=== PATIENT | female | born 1945 | race Two or more races ===

== ENCOUNTER → 2017-10-24 | Outpatient (CLI) | payer MEDICARE ==
--- NOTE | 2017-10-24 17:34 | CONS ---
CONSULTATION REASON FOR CONSULTATION: This is a consultation note for narcolepsy. This is a 72-year-old female patient, who is trying to establish herself here in the sleep clinic to be taken care of her narcolepsy. The patient was diagnosed having narcolepsy many years back. Since diagnosis was given to her at a young age and this is approximately 50 years ago. Back then the patient used to see Dr. Adarsh Adrian in [place], [place]. Note that she seems to have respiratory tract infection. Following that, she was told that she is not the same in terms of her sleep quality. She starts getting excessively somnolent and sleepy and she is not sure whether this sleep study was conducted however she has been told by her physician, Dr. Adarsh Adrian that she has narcolepsy and initially she was given a stimulant called Desoxyn which subsequently got discontinued in the market and the patient was switched to Dexedrine 50 mg once a day (dextroamphetamine). The patient ultimately left Dr. Adarsh Adrian and she was seeing Dr. Cabral as a primary care physician and he was able to renew this patient's with Dexedrine prescription. More recently, the patient established herself with Dr. Hosea Dorsey in [facility] and she was informed that she was to see a sleep specialist regarding her narcolepsy and her primary care physician was unable to renew her dextroamphetamine. For that reason, the patient came to me for further advice. On today's evaluation, I have no objective data to suggest that the patient has narcolepsy. On clinical grounds, the patient seems to be well treated with Dexedrine 50 mg p.o. daily. She is awake and alert during the day and she does not have any sleep attacks. No sleep paralysis or hypnogogical or hyponopromptic hallucinations. She has no cataplexy. She has been on the same medication for 25-30 years at least and she reports she is unable to function without the use of Dexedrine. No snoring. No witnessed apneas. No waking up in the middle of night, choking or gasping for air. No restlessness in lower extremities. No side effects related to Dexedrine intake. No anxiety. No depression. No other psychiatric history. The patient's current Benton score is 10. She denies having any nocturia. No grinding of the teeth. No sleepwalking. No anxiety or panic attack. No palpitation. No nocturnal heartburn. No restlessness in lower extremities. No falling asleep during day-to-day activity or driving. She has never been involved in a motor vehicle accidents because of feeling sleepy. She drinks around 2-3 cups of coffee on a daily basis. No substance abuse. No alcoholism. PAST MEDICAL HISTORY: 1. Questionable narcolepsy details discussed above. 2. Hypertension. 3. Hyperlipidemia. 4. Basal cell carcinoma of the skin. 5. Osteopenia. 6. Glaucoma. PAST SURGICAL HISTORY: Includes tonsillectomy and bilateral cataract surgery. Appendectomy and tubal ligation surgery. ALLERGIES: TYLENOL. OUTPATIENT MEDICATION LIST: Includes Dexedrine 15 mg p.o. ER 1 tablet a day. Chlorothiazide 250 mg p.o. daily, Norvasc 10 mg p.o. daily. Ramipril 10 mg p.o. daily. Zocor 20 mg p.o. daily. Cosopt eye drops. Xalatan eye drops. Multivitamin 1 tablet a day. Aspirin 81 mg p.o. daily, vitamin D 2500 units daily, potassium chloride ER 8 mEq p.o. daily, calcium 5 mg p.o. daily. SOCIAL HISTORY: Patient is a nonsmoker. No history of alcohol. No history of IV drugs. FAMILY HISTORY: Family history negative for narcolepsy. No family history of sleep apnea or any other form of sleep disorder. REVIEW OF SYSTEMS: 12-point review of system was done. Positive findings are mentioned above in the history of present illness. Of significance is the absence of any meningitis. No head trauma. No substance abuse. No dyspnea. No chest pain. No nausea, no vomiting. No restlessness in lower extremities. No neuropathy. No altered mentation. PHYSICAL EXAMINATION: BP is 156/82, pulse 96, respirations 16, temperature 97.8 saturation 97% on room air. Weight is 166, height 5 feet 0 inch. BMI 32.4. Neck size is 14.5 inches. GENERAL APPEARANCE: Calm comfortable. No acute distress. Head is atraumatic, normocephalic. NECK: Supple. There is no JVD. No goiter or neck masses. LUNGS: Clear to auscultation. HEART: Sounds are regular rate and rhythm. Normal S1, S2. No S3. No murmurs. ABDOMEN: Soft, nontender. No organomegaly. EXTREMITIES: No edema. No cyanosis or clubbing. NEUROLOGIC: A and O x3. No focal neurological deficits. PSYCHIATRIC: No anxiety. No depression. SKIN: No ulcerations, cellulitis or wounds. IMPRESSION: Questionable narcolepsy. The patient was given diagnosis of narcolepsy and the exact basis for this diagnosis is not clear. He was diagnosed having the disease more than 50 years ago. I am not sure if she was diagnosed correctly. In fact she recalls that her symptoms of hypersomnia started after a respiratory tract infection which could have been a bacterial or viral infection and following that she became quite hypersomnolent and sleepy and she was started on a stimulants and she has been on Dexedrine for the past 25-30 years at least. In fact, a diagnosis of narcolepsy is doubtful especially with the absence of any sleep paralysis, hallucinations or cataplexy. The patient seems to be well treated with Dexedrine without any major hypersomnia and sleepiness and she seems to be quite alert while on the treatment. PLAN: I had a lengthy discussion with the patient. Explained to her the clinical features of narcolepsy and the patient seemed to be very well educated about the narcolepsy and especially since she has joined the [employer], and she has been getting newsletters on a regular basis and she has been very involved. Never the less, I do not think we have the objective evidence and PSG and MSLT data to support the diagnosis of narcolepsy. I think we need to perform a PSG and 2nd day MSLT to further characterize her sleep abnormality and if narcolepsy is present and studies support the findings, we should be able to continue the treatment. I renewed this patient's Dexedrine 15 mg ER for another 3 months. Meanwhile the patient will undergo a PSG and MSLT and I will review the findings and make further recommendations. I asked the patient to stop the Dexedrine around a week prior to her sleep study. We discussed issues related to sleep hygiene. We are going to implement good sleep hygiene measures. Encourage weight loss. We will follow recommendations based on her progress. Please send a copy to Dr. Hosea Dorsey [id number] [place] [address]. MMODL / IJN: [id number] /
== END | disposition home or self-care (01) ==
LOC: SLEEP 13:30
PROVIDERS: ATTEND Internal Medicine Critical Care Medicine
DX: G47.419 Narcolepsy without cataplexy (principal); I10 Essential (primary) hypertension; E78.5 Hyperlipidemia, unspecified; M85.80 Other specified disorders of bone density and structure, unspecified site; H40.9 Unspecified glaucoma; Z85.828 Personal history of other malignant neoplasm of skin; Z88.6 Allergy status to analgesic agent; Z79.899 Other long term (current) drug therapy; Z79.82 Long term (current) use of aspirin
CPT/HCPCS: 99211

== ENCOUNTER → 2018-02-28 | Outpatient (CLI) | payer MEDICARE ==
--- NOTE | 2018-02-28 16:12 | PN ---
PROGRESS NOTE This patient was seen in the office on initial consultation on 01/02/2018. The patient came to establish herself at our sleep clinic. The patient claimed that she had a diagnosis of narcolepsy that was established more than 40 years ago. Apparently she was diagnosed with narcolepsy at a very young age, and she was having chronic hypersomnia and sleepiness; for that reason, she was started on stimulant therapy and she took Dexedrine for a total of 25 to 30 years. The patient was taking it without any major problems. She has no sleep paralysis, no hallucinations, no cataplexy. She states that she is unable to function during the day without the treatment, and she needs it to help her with her chronic tiredness and sleepiness that she has been experiencing for years. Based on all this, I decided to repeat this patient's sleep study to re-evaluate the findings. The sleep study was completed on 01/02/2018. In summary, the patient had no evidence of any sleep breathing disorder. The sleep architecture showed 16% stage I, 47.1% stage II, 1% stage III and 12% REM sleep. No early REM onset. She hit the first REM at 97 minutes. Sleep efficiency was around 70%. Her AHI was 4.9. She had a second-day MSLT, during which she was given a total of 5 naps. She napped in all of these trials and her mean sleep latency for 5 naps was 13.1. She only had one REM-onset sleep. Based on all this, the patient does not have any solid or objective finding of narcolepsy. As mentioned, she does not have any sleep paralysis, hallucinations or cataplexy. She probably has a component of chronic hypersomnia, probably primary hypersomnia, for which she was given stimulants, and she is at the point where she cannot function and she becomes quite somnolent and sleepy while on treatment. She does not seem to have any addiction for the behavior. She has been taking the medication regularly for all these years without any potential side effects or any reported overdose or abuse. Her urine drug screen was also negative for any opiate, methadone or any other street drugs. She also was negative for alcohol. REVIEW OF SYSTEMS: CONSTITUTIONAL: Chronic fatigue and tiredness. No recent weight gain or weight loss. She has snoring without evidence of any obstructive sleep apnea, based on the sleep study. She has no sleep paralysis, no hallucinations, no cataplexy, no anxiety, no substance abuse, no heartburn, no chest pain, no palpitations, no falls, no altered mentation. PHYSICAL EXAMINATION: BP is 164/84, pulse 82, respirations 16, temperature 98.1, saturation 98% on room air. Tracy score is 14. GENERAL APPEARANCE: Calm, comfortable. Head is atraumatic, normocephalic. Neck is supple. There is no JVD. No goiter or neck mass. LUNGS: Clear to auscultation. Heart sounds are regular rate and rhythm. Normal S1, S2. No S3, S4. No murmurs. ABDOMEN: No organomegaly. There is no edema. No cyanosis or clubbing. NEUROLOGIC: The patient is alert and oriented x3. There is no focal neurological deficit. Psychiatrically no anxiety or depression. IMPRESSION: 1. 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 Mean sleep latency is at 13.1, and there was only one REM-onset sleep; not enough to diagnose narcolepsy at this stage. No evidence of any sleep breathing disorder/obstructive sleep apnea. No objective evidence of narcolepsy. 2. Hypertension. 3. Hyperlipidemia. 4. Osteopenia. 5. Glaucoma. PLAN: Renew Dexedrine, which is a dextroamphetamine, 15 mg ER one tablet a day to be taken in the morning. Will give her a 90-day supply. We will continue monitoring this patient on a regular basis. No adverse reaction from the treatment. No reported psychosis or any aggressive behavior. No potential side effects on her blood pressure. The patient does not have any history of coronary artery disease. No dependency or abuse potential, and the patient has been taking treatment without any complications. To renew the medication, she will see me back in 6 months to a year for followup. MMODL / IJN: [id number] /
== END | disposition home or self-care (01) ==
LOC: SLEEP 12:54
PROVIDERS: ATTEND Internal Medicine Critical Care Medicine
DX: G47.10 Hypersomnia, unspecified (principal); I10 Essential (primary) hypertension; E78.5 Hyperlipidemia, unspecified; M85.80 Other specified disorders of bone density and structure, unspecified site; H40.9 Unspecified glaucoma

== ENCOUNTER → 2019-04-09 | Outpatient (CLI) | payer MEDICARE ==
--- NOTE | 2019-04-09 16:04 | PN ---
PROGRESS NOTE This patient is a 73-year-old female coming in for annual check regarding chronic hypersomnia. The patient has primary hypersomnia, treated with Dexedrine 15 mg for more than 20 years, and today she is coming in for followup. Note that I did a complete evaluation of this patient, including a PSG and second-day MSLT. She did not fit the criteria for narcolepsy, despite what she was told in the past. Note that she does not have any sleep paralysis, hallucinations or cataplexy. She had a mean sleep latency of 13.1 minutes for a total of 5 naps. No REM-onset sleep. She is feeling much better with the use of Dexedrine that she has used for more than 20 years. She is going to bed around 10:30 p.m., wakes up at 8 a.m. in the morning. She takes her Dexedrine tablet in the morning. No side effects. No tachycardia. No issues with dependence or drug overdose. No hallucinations. No anxiety. No depression. No tachycardia. No palpitations. The rest of her medical problems and comorbidities are all essentially stable for the time being. She does not fall asleep during day-to-day activities and she feels quite alert and refreshed and she is very content with the treatment. REVIEW OF SYSTEMS: Fourteen-point review of systems was done. Positive findings are all mentioned above in the history of present illness. No chest pain. No heartburn. No palpitation. No substance abuse. No drug overdose. No anxiety. No depression. No history of any psychiatric disorder or mental health issues. PHYSICAL EXAMINATION: BP is 150/92, pulse 81, respirations 16, temperature 97.5, saturation 99% on room air. Weight is 172, height 5 feet 0 inches. Norwalk score is 13. BMI is 33.5. GENERAL APPEARANCE: Calm, comfortable. No acute distress. Head is atraumatic, normocephalic. NECK: Supple. No JVD. No goiter or neck mass. LUNGS: Diminished; otherwise clear. HEART: Heart sounds are regular rate and rhythm. Normal S1, S2. No S3, S4. No murmurs. ABDOMEN: Soft, nontender. No organomegaly. EXTREMITIES: No edema. No cyanosis or clubbing. NEUROLOGIC: The patient is alert and oriented x3. No focal neurological deficits. PSYCHIATRIC: Negative for anxiety or depression. Skin is negative for any wounds or ulceration. IMPRESSION: 1. Chronic hypersomnia, on Dexedrine, with excellent clinical response and compliance. No side effects to the treatment. The patient has been on Dexedrine 15 mg for more than 20 years. The medication will be renewed. Overall there is no indication for narcolepsy in this patient based on my previous workup. 2. Hypertension. 3. Hyperlipidemia. 4. Osteopenia. 5. Glaucoma. PLAN: 1. Renewed Dexedrine for another year. 2. No adverse effects from the treatment. 3. No cardiovascular side effects. 4. No psychiatric side effects. 5. No issues with dependency. 6. Will continue to follow. See me back in a year's time, earlier if needed. MMODL / IJN: [id number] /
== END | disposition home or self-care (01) ==
LOC: SLEEP 13:38
PROVIDERS: ATTEND Internal Medicine Critical Care Medicine
DX: G47.10 Hypersomnia, unspecified (principal); I10 Essential (primary) hypertension; E78.5 Hyperlipidemia, unspecified; M85.80 Other specified disorders of bone density and structure, unspecified site; H40.9 Unspecified glaucoma; Z79.899 Other long term (current) drug therapy

== ENCOUNTER → 2020-06-02 | Outpatient (CLI) | payer MEDICARE ==
--- NOTE | 2020-06-02 16:54 | PN ---
PROGRESS NOTE This is another annual visit for this patient who is currently 74, who has been on Dexedrine for more than 30 years for chronic primary hypersomnia. The patient continues to take medication at a dose of 50 mg p.o. daily to get adequate clinical response and arousal and alertness during the day. No reported side effects. As mentioned earlier, I do not see any autonomic side effects on his medications such as tachycardia or hypertension, irritability or altered mentation. No signs of any potential abuse for this patient. She is going to bed around 11 p.m., and she wakes up at 7 o'clock in the morning. She feels refreshed as the patient takes the medication 7 a.m. and gives her enough stimulation for the rest of the day. No recent weight gain or weight loss. Custer score without medications quite high at 20. Her current body weight is 164. No alcoholism. No substance abuse. She drinks wine occasionally and she smokes around 10-15 cigarettes on a daily basis. The rest of the medications have been essentially unchanged for now. REVIEW OF SYSTEMS: A 14-point review of system was done and positive findings are mentioned in history of present illness. No altered mentation. No TIAs. No focal neurological deficits. No change in her speech. No anxiety. No depression. No irritability. No confusion. No delirium. No psychosis. No tachycardia, palpitation or hypertensive reactions. PHYSICAL EXAMINATION: BP is 137/75, pulse 98, respirations 16, temperature is 98.2, saturation 97% on room air. Height is 4, 11, weight is 164. Neck size 14.5 inches, BMI 32.9. GENERAL APPEARANCE: Calm, comfortable. HEAD: Atraumatic, normocephalic. NECK: Supple. No JVD. No goiter or neck masses. LUNGS: Clear to auscultation. HEART: Heart sounds are regular rate and rhythm, normal S1, S2. No murmurs. ABDOMEN: Soft, nontender, no organomegaly. EXTREMITIES: No edema, no cyanosis or clubbing. NEUROLOGICALLY: She is awake and alert and there are no focal neurological deficits. MEDICATION LIST: Includes Dexedrine 50 mg p.o. daily, hydrochlorothiazide 25 mg p.o. daily, Norvasc 10 mg p.o. daily, ramipril 10 mg p.o. daily, Zocor 20 mg p.o. daily, low-dose aspirin 81 mg p.o. daily, vitamin B, vitamin D, fish oil, calcium, lutein, Xalatan eyedrops, Cosopt eye drops, magnesium supplements, multivitamin. IMPRESSION: 1. Chronic primary hypersomnia, maintained on Dexedrine for more than 30 years. No reported side effects. The patient is getting adequate clinical response and alertness during the day while on this medication without any potential side effect or abuse. Will continue same treatment for now. 2. Hypertension. 3. Hyperlipidemia. 4. Glaucoma. 5. Osteopenia. PLAN: 1. Continue Dexedrine 50 mg p.o. daily. 2. Monitor for any potential side effect or abuse. 3. The patient is following good sleep hygiene. 4. Rest of the comorbidities are all inactive and stable and will need a medication and she will see me back in a year's time in followup. MMNANCYL / ANAN: [id number] /
== END | disposition home or self-care (01) ==
LOC: SLEEP 16:01
PROVIDERS: ATTEND Internal Medicine Critical Care Medicine
DX: F51.11 Primary hypersomnia (principal); I10 Essential (primary) hypertension; E78.5 Hyperlipidemia, unspecified; H40.9 Unspecified glaucoma; M85.80 Other specified disorders of bone density and structure, unspecified site; Z79.82 Long term (current) use of aspirin; Z79.899 Other long term (current) drug therapy

== ENCOUNTER → 2021-06-28 | Outpatient (CLI) | payer MEDICARE | END | disposition home or self-care (01) | LOC: LABPAT 12:29 | PROVIDERS: ATTEND Orthopaedic Surgery | DX: Z01.812 Encounter for preprocedural laboratory examination (principal); Z22.322 Carrier or suspected carrier of Methicillin resistant Staphylococcus aureus; M16.11 Unilateral primary osteoarthritis, right hip | CPT/HCPCS: 87070 ==

== ENCOUNTER 2021-07-06 09:15 | Observation (INO) | payer MEDICARE ==
--- NOTE | 2021-06-26 12:03 | HP ---
HISTORY AND PHYSICAL CHIEF COMPLAINT: Right hip pain. HISTORY OF PRESENT ILLNESS: The patient is a 75-year-old female who presents with progressive right hip pain for the past several years, worsening recently. She notes diffuse hip pain with any weightbearing activities. She has been limping. She is using a cane. She has tried anti-inflammatories without much relief. She notes she is severely limited because of pain. PAST MEDICAL HISTORY: Significant for eye disease, hypertension, hypercholesteremia, and arthritis. PAST SURGICAL HISTORY: Significant for appendectomy, tubal ligation, cataract removal, and tonsillectomy. CURRENT MEDICATIONS: Amlodipine, aspirin, hydrochlorothiazide, simvastatin, ramipril, Xalatan. ALLERGIES: SENSITIVITY TO TYLENOL. FAMILY HISTORY: Is unknown. SOCIAL HISTORY: Significant for current tobacco use. REVIEW OF SYSTEMS: Sixteen-point review of systems otherwise reviewed and is noncontributory. PHYSICAL EXAMINATION: On examination, the patient is approximately 5 feet 1, 150 pounds of mesomorphic habitus. HEENT exam is nonfocal. NECK was supple. Passive motion right hip, flexion 75 degrees, external rotation hip flexed 50 degrees, internal rotation is 10 degrees with pain. She has shortening of the right lower extremity compared to the left. Her distal neurovascular exam appears intact in the right lower extremity. X-rays of the right hip obtained in the office show severe degenerative joint disease with [id number] changes and subchondral sclerosis. IMPRESSION: Right hip severe osteoarthrosis-symptomatic. RECOMMENDATIONS: I talked to the patient at length regarding her condition and treatment options. At this point, she is quite limited because of pain despite attempted conservative measures. After thorough discussion, she opts to proceed with surgery. We will plan to proceed with right total hip arthroplasty utilizing a lateral approach. We will institute DVT prophylaxis postoperatively. Risks and benefits were discussed at length in layman's terms. MMODL / IJN: [id number] /
[2021-07-01 13:08] VITALS: BMI 27.8
[~2021-07-06 09:15] MED LIST: ACETAMINOPHEN TAB 500 MG TAB PO PRN; DEXAMETHASONE SOD PHOSPHATE 4 MG/ML 1 ML VIAL IV ONE; HYDROmorphone 0.5 MG/0.5 ML SYRINGE IVP PRN; LIDOCAINE 1% (10MG/ML) FOR IV START INTRADERMA PRN; MELOXICAM 7.5 MG TAB PO PRN; MIDAZOLAM 2 MG/2 ML VIAL IV PRN; ONDANSETRON 4 MG/2 ML VIAL IVP PRN; TRANEXAMIC ACID 1,000 MG in SODIUM CHLORIDE 0.9% 100 ML IVPB PRN
[2021-07-06] MEDS: LACTATED RINGERS 1,000 ML IV SCH ×2 (09:33→09:50)
[2021-07-06] MEDS ORDERED: MIDAZOLAM 2 MG/2 ML VIAL ONE (10:30)
[2021-07-06] MEDS ORDERED: PROPOFOL 10 MG/ML 20 ML VIAL IV ONE (10:30)
[2021-07-06] MEDS ORDERED: fentaNYL (PF) 50 MCG/ML 2 ML AMP ONE (10:30)
[2021-07-06] MEDS ORDERED: TRANEXAMIC ACID 1,000 MG/10 ML VIAL ONE (10:30)
[2021-07-06] MEDS ORDERED: PHENYLEPHRINE-0.9% NACL SYG 1,000 MCG/10 ML SYRINGE ONE (10:30)
[2021-07-06] MEDS ORDERED: SODIUM CHLORIDE 0.9% 100 ML BAG ONE (10:30)
[2021-07-06] MEDS ORDERED: HYDROmorphone (PF) 1 MG/ML ONE (10:30)
[2021-07-06] MEDS ORDERED: ceFAZolin 1,000 MG in SODIUM CHLORIDE 0.9% 1,000 ML IRRIGATION ONE (11:02)
[2021-07-06] MEDS ORDERED: LACTATED RINGERS 1,000 ML IV ONE ×2 (11:32→14:00)
[2021-07-06] MEDS ORDERED: NALOXONE 0.4 MG/ML 1 ML VIAL IV PRN (12:31)
[2021-07-06] MEDS ORDERED: HYDROcodone/APAP 5-325MG 1 EACH TAB PO PRN (12:31)
--- NOTE | 2021-07-06 12:51 | P.OP ---
Date of Procedure: 07/06/21 Preoperative Diagnosis: Right hip severe osteoarthrosis Postoperative Diagnosis: Same Procedure(s) Performed: Right total hip arthroplastypress-fitlateral approach Implants: Depuy Corail size 11 high offset collared femoral stem, 36+8.5 cobalt chrome femoral head, 36 mm [place] acetabular shell with +4 neutral liner. Anesthesia: GETA, spinal Surgeon: Abdias Parker Senior Telecommunications Engineer #1: Tenzin Castañeda Estimated Blood Loss (ml): 100 Pathology: other (Femoral head) Condition: stable Disposition: PACU Indications for Procedure: The patient's a 75-year-old female who presents with progressive pain secondary osteoarthrosis despite conservative measures. A discussion of the risks and benefits of operative intervention versus continued conservative measures. Patient To proceed with surgery. Operative risks to include fracture, inf ection, neurovascular injury, development of blood clots, possible leg length discrepancy, possible component loosening/failure need for subsequent procedures was discussed. Informed consent was obtained. Operative Findings: As below Description of Procedure: The patient was brought to the operating room, and after induction of spinal anesthesia was placed in a lateral decubitus position. The bony prominences were appropriately padded. The pelvis was stable perpendicular to the floor with a pegboard. The right lower extremity was prepped and draped in normal fashion. A 12 cm incision was then made centered over the greater trochanter extending superiorly to level the ASIS and distally in line with the femoral shaft. The skin and subcutaneous tissues were divided sharply. Electrocautery was used for hemostasis. The fascia paris and gluteus lakhwinder fascia was split in line with the skin incision. The muscle fibers were bluntly dissected proximally. A self-retaining retractor was placed. The anterior and posterior margins of the gluteus medius muscles identified and the anterior two thirds was detached from the greater trochanter with electrocautery. The gluteus minimus tendon was identified and detached in a similar fashion. A wide capsulotomy was performed. The femoral neck fracture was identified in the lower neck cut was made approximately 1 1/2 cm above the level of the lesser trochanter with a sagittal saw at a 45 the shaft. The head was then extracted with a corkscrew. Attention was then paid towards preparing the acetabular. Anterior and posterior retractors were placed. The remaining capsular labral tissues debrided sharply clearly defining the acetabular margins. Began reaming with a 45 mm reamer taking care to initially medialize, then reaming at 45 of abduction and 20 of anteversion. Sequential reaming is performed up to 55 mm. This was down to bleeding bony surface. A trial 56 mm acetabular shell was inserted at 45 of abduction and 20 of anteversion. This was fully seated. There was good rim fit and stability. A +4 neutral polyethylene liner was then impacted. Care taken to avoid any soft tissue interposition. Attention was then paid towards preparing the proximal femur. A box chisel was used to open the metaphyseal region. A canal finder was used to find the femoral canal. Sequential broaching was performed up to a size 11. This is placed in 15 of anteversion with the leg perpendicular floor judging off the trans-epicondylar axis. There is good rotational stability. A calcar mill was used to fashion the medial calcar. A trial high offset neck along with a 36 mm + 8.5 trial head was placed. The hip was gently reduced. It was taken through range of motion. I felt to be stable in flexion and extension with internal and external rotation. I felt there was adequate [place] of soft tissue tension. The hip was gently dislocated. The trial components removed. Pulsatile lavage was utilized. The final size 11 high offset collared femoral stem was inserted again with the leg perpendicular to the floor in 15 of anteversion. Again the re was good rotational stability. A 36 mm + 1.5 cobalt chrome femoral head was gently impacted. The hip was gently reduced. Again it was taken through motion and felt to be stable in flexion and extension with internal and external rotation. Pulsatile lavage was again utilized. With the leg in abduction the gluteus minimus and medius tendons reattached to the greater trochanter with #2 Ethibond suture. There was minimal drainage therefore a deep drain was not placed. The fascia paris and gluteus lakhwinder fascia was closed with #2 Ethibond suture. The subcutaneous tissues were reapproximated interrupted 2-0 Vicryl sutures. The skin was reapproximated with 3-0 subcuticular strata fix suture. Skin tape and adhesive was applied. A sterile dressing was applied. The patient was awoken from sedation and transferred to recovery room in good condition. Blood loss was estimated 100 mL. No complications were incurred. Sponge and needle counts were correct in the case. Tenzin TATE assisted during the major composes case to include exposure, implantation, and closure.
--- NOTE | 2021-07-06 14:07 | XR ---
EXAMINATION TYPE: XR Hip Limited RT DATE OF EXAM: 07/06/2021 COMPARISON: NONE HISTORY: Postop TECHNIQUE: One view submitted. FINDINGS: There is postsurgical change in near anatomic alignment. There is soft tissue edema and emphysema. IMPRESSION: 1. Postoperative change. Appears in near-anatomic alignment.
[2021-07-06] MEDS: HYDROcodone/APAP 7.5-325MG 1 EACH TAB PO PRN (15:21)
--- NOTE | 2021-07-06 16:50 | P.CONS ---
History of Present Illness - Reason for Consult Consult date: 07/06/21 - Chief Complaint Medical management - History of Present Illness 75 year old woman with history of Glaucoma, narcolepsy, HTN, HLD who presented for elective right hip total arthroplasty. Medicine consulted for medical management. Pt did well post operatively with no complaints outside of some right hip pain. She has an oxygen requirement, but no dyspnea. Denies cp, palps, fevers, chills, nausea, vomiting, syncope, abd pain, diarrhea, constipation, dysuria, numbness/weakness of extremities. She is afebrile, HDS. On 2L NC for 100% saturation. Review of Systems All Systems reviewed and pertinent positives and negatives noted in HPI, all other symptoms are negative Past Medical History Past Medical History: Eye Disorder, Hyperlipidemia, Hypertension, Osteoarthritis (OA) Additional Past Medical History / Comment(s): BILAT GLAUCOMA. NARCOLEPSY History of Any Multi-Drug Resistant Organisms: None Reported Past Surgical History: Appendectomy, Tonsillectomy, Tubal Ligation Additional Past Surgical History / Comment(s): BILAT CATARACTS REMOVED WITH LENS IMPLANTS Past Anesthesia/Blood Transfusion Reactions: No Reported Reaction Past Psychological History: No Psychological Hx Reported Smoking Status: Current every day smoker Past Alcohol Use History: Occasional Additional Past Alcohol Use History / Comment(s): SMOKES ABOUT 1/2 PPD SINCE AGE 17 Past Drug Use History: None Reported - Past Family History Mother Family Medical History: No Reported History Medications and Allergies Home Medications Medication Instructions Recorded Confirmed Type Aspirin [Adult Low Dose Aspirin EC] 81 mg PO DAILY 07/01/21 07/06/21 History Calcium Carbonate/Vitamin D3 1 each PO DAILY 07/01/21 07/06/21 History [Calcium 500 mg-Vit D3 5 mcg (200 Unit)] Dextroamphetamine Sulfate 15 mg PO QAM 07/01/21 07/06/21 History [Dexedrine] Dorzolamide/Timolol/Pf [Cosopt Pf 1 applicator BOTH EYES BID 07/01/21 07/06/21 History 2%/0.5% Ophth Droperette] Fish Oil/Dha/Epa [Fish Oil 1,200 1 each PO DAILY 07/01/21 07/06/21 History mg Fish Oil] Latanoprost Ophth [Xalatan 0.005%] 1 drops BOTH EYES HS 07/01/21 07/06/21 History Lutein 20 mg PO DAILY 07/01/21 07/06/21 History Magnesium Gluconate [Magonate] 500 mg PO DAILY 07/01/21 07/06/21 History Multivitamins, Thera [Multivitamin 1 tab PO DAILY 07/01/21 07/06/21 History (formulary)] Potassium Chloride 8 meq PO DAILY 07/01/21 07/06/21 History Ramipril [Altace] 5 mg PO HS 07/01/21 07/06/21 History Simvastatin [Zocor] 20 mg PO HS 07/01/21 07/06/21 History Ubidecarenone [Co Q-10] 100 mg PO DAILY 07/01/21 07/06/21 History Vit D3. 625 mcg PO DAILY 07/01/21 07/06/21 History Vitamin B Complex 1 each PO DAILY 07/01/21 07/06/21 History amLODIPine [Norvasc] 10 mg PO DAILY 07/01/21 07/06/21 History hydroCHLOROthiazide [Hydrodiuril] 25 mg PO DAILY 07/01/21 07/06/21 History Allergies Allergy/AdvReac Type Severity Reaction Status Date / Time No Known Allergies Allergy Verified 07/06/21 09:46 Physical Exam Osteopathic Statement: *. No significant issues noted on an osteopathic structural exam other than those noted in the History and Physical/Consult. Vitals: Vital Signs Temp Pulse Pulse Resp BP Pulse Ox 07/06/21 15:03 71 16 109/70 99 07/06/21 14:00 63 16 98/53 100 07/06/21 13:45 75 16 108/52 100 07/06/21 13:30 69 16 108/52 100 07/06/21 13:15 73 16 112/51 98 07/06/21 13:00 73 18 100/54 100 07/06/21 12:46 96.8 F L 56 L 12 92/43 97 07/06/21 09:40 99.0 F 85 17 166/75 97 Intake and Output 07/06/21 07/06/21 07/06/21 06:59 14:59 22:59 Intake Total 1851 Output Total 100 Balance 1751 Intake: IV 1851 Output: Estimated Blood Loss 100 Other: Weight 66.68 kg 66.68 kg Gen: awake, alert HEENT: normocephalic, atraumatic, good hearing acuity, moist mucous membranes Resp: good air exchange, breathing comfortably with no accessory muscle use, CTAB CVS: good distal perfusion x 4, RRR, no murmurs GI: soft, NTTP, ND : no SPT, no CVAT, sanchez catheter not present MSK: no pitting edema, no clubbing Neuro: non-focal, moving all extremities Psych: cooperative, euthymic mood Assessment and Plan Assessment: Glaucoma Macular degeneration -continue home cosopt -continue home latanoprost Hypertension Hyperlipidemia -continue home HCTZ, amlodipine, ramipril -daily BMP, Mg Narcolepsy -holding home dexedrine, can restart on discharge Right hip total arthroplasty -pain control and DVT ppx per primary team -doing well post-op, pending PT evaluation DVT PPx with enoxaparin Pt is Full Code
[2021-07-06] MEDS: lisinopriL 20 MG TAB PO SCH (19:49)
[2021-07-06] MEDS: ATORVASTATIN 10 MG TAB PO SCH (19:49)
[2021-07-06] MEDS: SENNOSIDES-DOCUSATE SODIUM 1 EACH TAB PO SCH (19:49)
[2021-07-06] MEDS: LATANOPROST 0.005% OPHTH DROPS 2.5 ML BTL BOTH EYES SCH (21:17)
[2021-07-06] MEDS: DORZOLAMIDE-TIMOLOL 2.23%/0.68 10ML BTL BOTH EYES SCH (22:18)
[2021-07-07] MEDS: HYDROcodone/APAP 7.5-325MG 1 EACH TAB PO PRN ×4 (00:19→20:21)
[2021-07-07] MEDS: LACTATED RINGERS 1,000 ML IV SCH (06:04)
[2021-07-07] MEDS: amLODIPine 10 MG TAB PO SCH (08:12)
[2021-07-07] MEDS: MAGNESIUM OXIDE 400 MG TAB PO SCH (08:13)
[2021-07-07] MEDS: CHOLECALCIFEROL 25 MCG (1000 IU) TABLET PO SCH (08:13)
[2021-07-07] MEDS: ENOXAPARIN 40 MG/0.4 ML SYRINGE SQ SCH (08:13)
[2021-07-07] MEDS: POTASSIUM CHLORIDE ER 10 MEQ TAB.ER.PRT PO SCH (08:13)
[2021-07-07] MEDS: DORZOLAMIDE-TIMOLOL 2.23%/0.68 10ML BTL BOTH EYES SCH ×2 (08:13→20:22)
[2021-07-07] MEDS: MULTIVITAMINS, THERA 1 EACH TAB PO SCH (08:13)
[2021-07-07] MEDS: CALCIUM CARB-VIT D 500 MG-5 MCG TAB PO SCH (08:13)
[2021-07-07] MEDS ORDERED: NON FORMULARY DRUG (Lutein [Lutein] 20 MG Capsule) PO SCH (09:00)
[2021-07-07] MEDS ORDERED: hydroCHLOROthiazide 25 MG TAB PO SCH (09:00)
[2021-07-07] MEDS ORDERED: NON FORMULARY DRUG (Vitamin B Complex [Vitamin B Complex] 1 EACH Capsule) PO SCH (09:00)
[2021-07-07] MEDS ORDERED: NON FORMULARY DRUG (Ubidecarenone [Co Q-10] 100 MG Capsule) PO SCH (09:00)
[2021-07-07] MEDS ORDERED: NON FORMULARY DRUG (Fish Oil/Dha/Epa [Fish Oil 1,200 Mg Fish Oil] 1 EACH Capsule) PO SCH (09:00)
--- NOTE | 2021-07-07 11:14 | P.PN ---
Subjective Progress Note Date: 07/07/21 Principal diagnosis: Right hip osteoarthritis Patient seen at bedside this morning. Patient is resting in chair. Patient says her hip is moderate amount of pain. She says she did work with physical therapist this morning got up with walker and walked around room. Patient has not had bowel movement yet however, she says she has been passing gas. Patient also says she has been using incentive spirometer. Patient denies chest pain, fever, shortness breath, nausea, vomiting, loss of bowel/bladder control. Objective - Vital Signs Vital signs: Vital Signs Temp 98.1 F 07/07/21 08:00 Pulse 82 07/07/21 08:00 Resp 18 07/07/21 08:00 BP 103/52 07/07/21 08:00 Pulse Ox 97 07/07/21 08:00 Intake & Output 07/06/21 07/07/21 07/07/21 18:59 06:59 18:59 Intake Total 1851 Output Total 100 Balance 1751 Weight 66.68 kg Intake: IV 1851 Output: Estimated Blood Loss 100 Other: Voiding Method Toilet Toilet # Voids 1 3 - Exam Right hip: Incision is clean, dry, and intact. The exofin fusion tape is in good condition. There is minimal soft tissue swelling and ecchymosis surrounding the medial and lateral aspects of the incision. Calf is soft, no tenderness with palpation. Plantar flexion, dorsiflexion, EHL, FHL are intact. Sensory exam to light touch throughout the extremity is intact, dorsal pedis pulses 2+. Assessment and Plan Assessment: Postoperative day #1 status post right total hip arthroplasty Plan: 1. Right hip osteoarthritis - surgery performed yesterday, 07/07/2021- right total hip arthroplasty. Patient moderate pain this morning. Plan for discharge home tomorrow 2. Appreciate medical management 3. Pain management - continue oral pain medication 4. DVT prophylaxis/GI prophylaxis - Lovenox; senna 5. Encourage incentive spirometer use 6. PT/OT - weightbearing as tolerated with walker for assistance 7. Discharge planning - plan for discharge home tomorrow, 07/08/2021 Time with Patient: Less than 30
[2021-07-07 11:19] LABS: Basophils # (A) 0.01 X 10*3/uL (0.00-0.10); Basophils % (A) 0.1 %; Eosinophils # (A) 0 X 10*3/uL (0.04-0.35); Eosinophils % (A) 0 %; HCT 34.9 % (37.2-46.3); HGB 11.3 g/dL (12.0-15.0); Lymphocytes # (A) 1.48 X 10*3/uL (0.90-5.00); Lymphocytes % (A) 14.8 %; MCH 30.8 pg (27.0-32.0); MCHC 32.4 g/dL (32.0-37.0); MCV 95.1 fL (80.0-97.0); Mean Platelet Volume 9.6 fL (9.5-12.2); Monocytes # (A) 0.97 X 10*3/uL (0.20-1.00); Monocytes % (A) 9.7 %; Neutrophils # (A) 7.52 X 10*3/uL (1.80-7.70); Neutrophils % (A) 74.9 %; Platelet Count 301 X 10*3/uL (140-440); RBC 3.67 X 10*6/uL (4.10-5.20); WBC 10.03 X 10*3/uL (4.50-10.00)
[2021-07-07 11:36] LABS: African American GFR (CKD) 102.6 (60.0-200.0); BUN/Creat Ratio 21.67 Ratio (12.00-20.00); Calcium 8.6 mg/dL (8.7-10.3); Magnesium 1.7 mg/dL (1.5-2.4); Non-African American GFR(CKD) 88.5 (60.0-200.0); Potassium 3.5 mmol/L (3.5-5.5)
--- NOTE | 2021-07-07 14:02 | P.PN ---
Subjective Progress Note Date: 07/07/21 (delayed charting seen at 0930) Principal diagnosis: hip pain Patient is a 75-year-old female with a history of narcolepsy, hypertension, dyslipidemia, and arthritis who presented for elective right total knee arthroplasty. She had no postoperative complications. Patient seen and examined at bedside. She is still having significant amounts of right hip pain and is feeling very weak. She denies any chest pain, shortness of breath, nausea, or vomiting. She denies any headache. General: Nontoxic, mild distress secondary to pain appears at stated age Derm: warm, dry Head: atraumatic, normocephalic, symmetric Eyes: EOMI, no lid lag, anicteric sclera Mouth: no lip lesion, mucus membranes moist Cardiovascular: S1S2 reg, no murmur, positive posterior tibial pulse bilateral, Lungs: Decreased breath sounds bilateral, no rhonchi, no rales , no accessory muscle use Abdominal: soft, nontender to palpation, no guarding, no appreciable organomegaly Ext: no gross muscle atrophy, trace edema, no contractures Neuro: CN II-XI grossly intact, no focal neuro deficits Psych: Alert, oriented, appropriate affect 75-year-old female status post right total hip arthroplasty. Postoperative management per orthopedic services. Acute blood loss anemia, anticipated outcome of surgery -Mild and will self resolve -No indication for oral iron supplementation at this time. Hyponatremia -Suspect hydrochlorothiazide induced -Hold hydrochlorothiazide -Gentle IV fluid -Recheck in a.m. Narcolepsy -Patient to bring in dextroamphetamine from home Hypertension controlled -Continue with Norvasc, lisinopril -Follow blood pressures Dyslipidemia -Continue with statin Thank you for allowing us to participate in the care of this pleasant patient. Do not hesitate to contact us with questions. Someone can be reached from the [facility] hospitalist group all hours of the day at [phone] or via [employer]. Objective - Vital Signs Vital signs: Vital Signs Temp 98.1 F 07/07/21 08:00 Pulse 82 07/07/21 08:00 Resp 18 07/07/21 08:00 BP 103/52 07/07/21 08:00 Pulse Ox 97 07/07/21 08:00 Intake & Output 07/06/21 07/07/21 07/07/21 18:59 06:59 18:59 Intake Total 1851 Output Total 100 Balance 1751 Weight 66.68 kg Intake: IV 185 Output: Estimated Blood Loss 100 Other: Voiding Method Toilet Toilet # Voids 1 3 - Labs CBC & Chem 7: 07/07/21 07:05 07/07/21 07:05 Labs: Abnormal Lab Results - Last 24 Hours (Table) 07/07/21 07/07/21 Range/Units 07:05 07:05 WBC 10.03 H (4.50-10.00) X 10*3/uL RBC 3.67 L (4.10-5.20) X 10*6/uL Hgb 11.3 L (12.0-15.0) g/dL Hct 34.9 L (37.2-46.3) % Immature Gran # 0.05 H (0.00-0.04) X 10*3/uL Eosinophils # 0 L (0.04-0.35) X 10*3/uL Sodium 131 L (135-145) mmol/L BUN/Creatinine Ratio 21.67 H (12.00-20.00) Ratio Glucose 114 H (70-110) mg/dL Calcium 8.6 L (8.7-10.3) mg/dL
[2021-07-07] MEDS: SODIUM CHLORIDE 0.9% 1,000 ML IV SCH (14:53)
[2021-07-07] MEDS: NICOTINE 14MG/24HR PATCH TRANSDERM SCH (14:53)
[2021-07-07] MEDS ORDERED: hydrOXYzine pamoate 25 MG CAP PO PRN (18:27)
[2021-07-07] MEDS: SENNOSIDES-DOCUSATE SODIUM 1 EACH TAB PO SCH (20:21)
[2021-07-07] MEDS: ATORVASTATIN 10 MG TAB PO SCH (20:21)
[2021-07-07] MEDS: lisinopriL 20 MG TAB PO SCH (20:22)
[2021-07-07] MEDS: LATANOPROST 0.005% OPHTH DROPS 2.5 ML BTL BOTH EYES SCH (21:32)
[2021-07-08] MEDS: HYDROcodone/APAP 7.5-325MG 1 EACH TAB PO PRN ×2 (03:13→13:13)
[2021-07-08 07:01] LABS: African American GFR (CKD) >90 (>60 ml/min/1.73 sqM); Anion Gap 4 mmol/L; Blood Urea Nitrogen 11 mg/dL (7-17); Calcium 8.5 mg/dL (8.4-10.2); Carbon Dioxide 28 mmol/L (22-30); Chloride 97 mmol/L (98-107); Glucose 131 mg/dL (74-99); Non-African American GFR(CKD) >90 (>60 ml/min/1.73 sqM); Potassium 3.2 mmol/L (3.5-5.1); Sodium 129 mmol/L (137-145)
[2021-07-08] MEDS: LACTATED RINGERS 1,000 ML IV SCH (07:13)
[2021-07-08 07:57] VITALS: BP 128/72; PULSE 83; RESP 18; TEMP 97.9
[2021-07-08] MEDS: CALCIUM CARB-VIT D 500 MG-5 MCG TAB PO SCH (09:23)
[2021-07-08] MEDS: MULTIVITAMINS, THERA 1 EACH TAB PO SCH (09:23)
[2021-07-08] MEDS: POTASSIUM CHLORIDE ER 10 MEQ TAB.ER.PRT PO SCH (09:23)
[2021-07-08] MEDS: amLODIPine 10 MG TAB PO SCH (09:23)
[2021-07-08] MEDS: ENOXAPARIN 40 MG/0.4 ML SYRINGE SQ SCH (09:24)
[2021-07-08] MEDS: MAGNESIUM OXIDE 400 MG TAB PO SCH (09:24)
[2021-07-08] MEDS: CHOLECALCIFEROL 25 MCG (1000 IU) TABLET PO SCH (09:24)
[2021-07-08] MEDS: NICOTINE 14MG/24HR PATCH TRANSDERM SCH (09:26)
[2021-07-08] MEDS: SODIUM CHLORIDE 0.9% 1,000 ML IV SCH (10:33)
[2021-07-08] MEDS: DORZOLAMIDE-TIMOLOL 2.23%/0.68 10ML BTL BOTH EYES SCH (10:33)
[2021-07-08] MEDS ORDERED: POTASSIUM CHLORIDE ER 20 MEQ TAB.ER PO STA (10:46)
--- NOTE | 2021-07-08 13:01 | P.DS ---
Providers Date of admission: 07/07/21 15:14 Expected date of discharge: 07/08/21 Attending physician: Abdias Parker Consults: 07/06/21 12:35 Consult Physician Routine Consulting Provider: Marjan Cintron Consult Reason/Comments: Medical Management s/p right total hip arthroplasty Do you want consulting provider notified?: Yes Primary care physician: [facility] Hospital Course: Date of admission: 07/06/2021 Date of discharge: 07/08/2021 Admission diagnosis: Right hip osteoarthritis Discharge diagnosis: Same Attending physician: Dr. Parker Surgical procedures: Right total hip arthroplasty Brief history: Patient is a 75-year-old female with a history of progressive primary right hip osteoarthritis. At this point patient has failed conservative treatment measures and has opted to proceed with a elective right total hip arthroplasty. Hospital course: Details of patient's surgery can be found in operative report. Patient tolerated the procedure well and was subsequently transported to orthopedic floor. Patient's orthopeidc and medical care was provided daily. Patient had daily laboratory tests performed for evaluation of overall blood counts. Patient had daily physical therapy to include strengthening range of motion as well as education with walker ambulation. Patient was treated with Lovenox for their postoperative DVT prophylaxis during their inpatient stay. Patient was noted to have a relatively uneventful postoperative course. Patient reported satisfactory pain control with oral pain medications by postoperative day 2. Patient showed satisfactory progress with physical therapy. Patient moved steadily through the program and had no difficulty meeting the goals by postoperative day 2. Given patient's otherwise satisfactory course and having met physical therapy goals, plan is to discharge patient home on postoperative day 2. Discharge condition/disposition: Patient will be discharged home in stable condition. Discharge medications: Instructions are given on resumption of patient's normal daily medications per primary care recommendation, in addition patient will be prescribed [place] 7.5 mg. Patient to take aspirin 81 mg twice a day at home for 30 days. Discharge instructions: 1. Wound care and infection precautions, keep incision dry and covered while showering, no lotions, creams, moisturizers. No soaking, tubs, pools, hottubs. Do not scrub over the incision. 2. Weight-bear as tolerated with walker / cane until follow-up. 3. Ice and elevate when necessary. Do not exceed 20 minutes per hour with ice pack. 4. Utilize compression sleeve until seen at first follow up appointment. 5. Visiting nursing care. 6. Home physical therapy. 7. Pain meds and anticoagulants per prescription. 8. Pain medication has potential to cause constipation. Increase oral fluid and fiber intake. Contact primary care provider if you have not had a bowel movement within 48 hours after discharge 9. No anti-inflammatory medication until discussed at first post operative visit, this including Motrin, Aleve, Mobic, Diclofenac. 10. Follow up in office at 2 weeks postop with Rod Curtis PA-C / Tenzin Castañeda PA-C 11. Follow up with your primary care doctor 7-10 days after discharge. 12. Contact [facility] with any questions, . Assessment: Right hip osteoarthritis Procedures: Right total hip arthroplasty Patient Condition at Discharge: Good Plan - Discharge Summary Discharge Rx Participant: Yes New Discharge Prescriptions: New HYDROcodone/APAP 7.5-325MG [[place] 7.5] 1 each PO Q6HR PRN #27 tab PRN Reason: Pain Sennosides-Docusate Sodium [Senokot-S] 2 each PO HS #30 tab Continue Vit D3. 25 mcg PO DAILY Fish Oil/Dha/Epa [Fish Oil 1,200 mg Fish Oil] 1 each PO DAILY Multivitamins, Thera [Multivitamin (formulary)] 1 tab PO DAILY Potassium Chloride 8 meq PO DAILY Vitamin B Complex 1 each PO DAILY amLODIPine [Norvasc] 10 mg PO DAILY Calcium Carbonate/Vitamin D3 [Calcium 500 mg-Vit D3 5 mcg (200 Unit)] 1 each PO DAILY Dextroamphetamine Sulfate [Dexedrine] 15 mg PO QAM Dorzolamide/Timolol/Pf [Cosopt Pf 2%/0.5% Ophth Droperette] 1 applicator BOTH EYES BID hydroCHLOROthiazide [Hydrodiuril] 25 mg PO DAILY Latanoprost Ophth [Xalatan 0.005%] 1 drops BOTH EYES HS Lutein 20 mg PO DAILY Magnesium Gluconate [Magonate] 500 mg PO DAILY Ramipril [Altace] 5 mg PO HS Simvastatin [Zocor] 20 mg PO HS Ubidecarenone [Co Q-10] 100 mg PO DAILY No Action Aspirin [Adult Low Dose Aspirin EC] 81 mg PO DAILY Discharge Medication List Aspirin [Adult Low Dose Aspirin EC] 81 mg PO DAILY 07/01/21 [History] Calcium Carbonate/Vitamin D3 [Calcium 500 mg-Vit D3 5 mcg (200 Unit)] 1 each PO DAILY 07/01/21 [History] Dextroamphetamine Sulfate [Dexedrine] 15 mg PO QAM 07/01/21 [History] Dorzolamide/Timolol/Pf [Cosopt Pf 2%/0.5% Ophth Droperette] 1 applicator BOTH EYES BID 07/01/21 [History] Fish Oil/Dha/Epa [Fish Oil 1,200 mg Fish Oil] 1 each PO DAILY 07/01/21 [History] Latanoprost Ophth [Xalatan 0.005%] 1 drops BOTH EYES HS 07/01/21 [History] Lutein 20 mg PO DAILY 07/01/21 [History] Magnesium Gluconate [Magonate] 500 mg PO DAILY 07/01/21 [History] Multivitamins, Thera [Multivitamin (formulary)] 1 tab PO DAILY 07/01/21 [History] Potassium Chloride 8 meq PO DAILY 07/01/21 [History] Ramipril [Altace] 5 mg PO HS 07/01/21 [History] Simvastatin [Zocor] 20 mg PO HS 07/01/21 [History] Ubidecarenone [Co Q-10] 100 mg PO DAILY 07/01/21 [History] Vit D3. 25 mcg PO DAILY 07/01/21 [History] Vitamin B Complex 1 each PO DAILY 07/01/21 [History] amLODIPine [Norvasc] 10 mg PO DAILY 07/01/21 [History] hydroCHLOROthiazide [Hydrodiuril] 25 mg PO DAILY 07/01/21 [History] HYDROcodone/APAP 7.5-325MG [[place] 7.5] 1 each PO Q6HR PRN #27 tab 07/08/21 [Rx] Sennosides-Docusate Sodium [Senokot-S] 2 each PO HS #30 tab 07/08/21 [Rx] Follow up Appointment(s)/Referral(s): [facility], [NON-STAFF] - As Needed Hosea Dorsey MD [Primary Care Provider] - 07/09/21 12:30 pm [facility] [NON-STAFF] - As Needed (walker) Abdias Parker MD [STAFF PHYSICIAN] - 07/23/21 2:10 pm Ambulatory/Diagnostic Orders: Basic Metabolic Panel [LAB.AMB] Location: None Selected Activity/Diet/Wound Care/Special Instructions: Orthopedic Discharge Instructions: 1. Wound care and infection precautions, keep incision dry and covered while showering, no lotions, creams, moisturizers. No soaking, pools, hot tubs. Do not scrub over incision. 2. Weight-bear as tolerated with walker / cane until follow-up. 3. Ice and elevate when necessary. Do not exceed 20 minutes per hour with ice pack. 4. Utilize compression sleeve until seen at first follow up appointment. 5. Pain meds and anticoagulants per prescription. 6. Pain medication has potential to cause constipation. Increase oral fluid and fiber intake. Contact primary care provider if you have not had a bowel movement within 48 hours after discharge. 7. No anti-inflammatory medication until discussed at first post operative visit, this including Motrin, Aleve, Mobic, Diclofenac. 8. Follow up in office at 2 weeks postop with Rod Curtis PA-C / Tenzin Castañeda PA-C 9. Follow up with your primary care doctor 7-10 days after discharge. 10. Contact [facility] with any questions, . Special Instructions: Resume hydrochlorothiazide on 07/10/21 Discharge Disposition: HOME WITH HOME HEALTH SERVICES
--- NOTE | 2021-07-08 13:16 | P.PN ---
Subjective Progress Note Date: 07/08/21 Principal diagnosis: Right hip osteoarthritis Patient seen at bedside early this afternoon. Patient is resting in chair. Patient says her hip is moderate amount of pain. She says she did work with physical therapist this morning got up with walker and walkd around the graves and up-and-down a couple steps. Patient has not had bowel movement yet however, she says she has been passing gas. Patient also says she has been using incentive spirometer. Patient denies chest pain, fever, shortness breath, nausea, vomiting, loss of bowel/bladder control. Objective - Vital Signs Vital signs: Vital Signs Temp 97.9 F 07/08/21 07:56 Pulse 83 07/08/21 07:56 Resp 18 07/08/21 07:56 BP 128/72 07/08/21 07:56 Pulse Ox 95 07/08/21 07:56 Intake & Output 07/07/21 07/08/21 07/08/21 18:59 06:59 18:59 Intake Total 1080 1140 Balance 1080 1140 Intake: Intake, IV Titration 600 Amount Sodium Chloride 0.9% 1, 600 000 ml @ 50 mls/hr IV . Q20H [facility] Rx#:[id number] Oral 1080 540 Other: # Voids 3 1 - Exam Right hip: Incision is clean, dry, and intact. The exofin fusion tape is in good conditi on. There is minimal soft tissue swelling and ecchymosis surrounding the medial and lateral aspects of the incision. Calf is soft, no tenderness with palpation. Plantar flexion, dorsiflexion, EHL, FHL are intact. Sensory exam to light touch throughout the extremity is intact, dorsal pedis pulses 2+. - Labs CBC & Chem 7: 07/07/21 07:05 07/08/21 06:10 Labs: Abnormal Lab Results - Last 24 Hours (Table) 07/08/21 Range/Units 06:10 Sodium 129 L (137-145) mmol/L Potassium 3.2 L (3.5-5.1) mmol/L Chloride 97 L (98-107) mmol/L Creatinine 0.46 L (0.52-1.04) mg/dL Glucose 131 H (74-99) mg/dL Assessment and Plan Assessment: Postoperative day #2 status post right total hip arthroplasty Plan: 1. Right hip osteoarthritis - surgery performed 07/06/2021- right total hip arthroplasty. Patient stable today. Plan for discharge home today 2. Appreciate medical management 3. Pain management - continue oral pain medication 4. DVT prophylaxis/GI prophylaxis - Lovenox; senna; patient is take aspirin 81 mg twice a day 30 days once at home 5. Encourage incentive spirometer use 6. PT/OT - weightbearing as tolerated with walker for assistance 7. Discharge planning - plan for discharge home today, 07/08/2021 Time with Patient: Less than 30
--- NOTE | 2021-07-08 20:33 | P.PN ---
Subjective Progress Note Date: 07/08/21 (delayed charting seen at 0955) Principal diagnosis: hip pain Patient is a 75-year-old female with a history of narcolepsy, hypertension, dyslipidemia, and arthritis who presented for elective right total knee arthroplasty. She had no postoperative complications. Patient seen and examined at bedside. Pain is better than yesterday, she did better with chemotherapy. Pain is still more than she thought it would be. Nausea is much better controlled today. General: Nontoxic, mild distress secondary to pain appears at stated age Derm: warm, dry Head: atraumatic, normocephalic, symmetric Eyes: EOMI, no lid lag, anicteric sclera Mouth: no lip lesion, mucus membranes moist Cardiovascular: S1S2 reg, no murmur, positive posterior tibial pulse bilateral, Lungs: Decreased breath sounds bilateral, no rhonchi, no rales , no accessory muscle use Abdominal: soft, nontender to palpation, no guarding, no appreciable organomegaly Ext: no gross muscle atrophy, trace edema, no contractures Neuro: CN II-XI grossly intact, no focal neuro deficits Psych: Alert, oriented, appropriate affect 75-year-old female status post right total hip arthroplasty. Postoperative management per orthopedic services. Acute blood loss anemia, anticipated outcome of surgery -Mild and will self resolve -No indication for oral iron supplementation at this time. Hyponatremia -Suspect hydrochlorothiazide induced -Hold hydrochlorothiazide, resume on 07/11 - recheck in 5 days with results to PCP Narcolepsy -Patient to bring in dextroamphetamine from home Hypertension controlled -Continue with Norvasc, lisinopril -Follow blood pressures Dyslipidemia -Continue with statin Thank you for allowing us to participate in the care of this pleasant patient. Do not hesitate to contact us with questions. Someone can be reached from the [facility] hospitalist group all hours of the day at [phone] or via [email or web address]. Medication reconciliation addressed. Objective - Vital Signs Vital signs: Vital Signs Temp 97.9 F 07/08/21 07:56 Pulse 83 07/08/21 07:56 Resp 18 07/08/21 07:56 BP 128/72 07/08/21 07:56 Pulse Ox 95 07/08/21 07:56 Intake & Output 07/08/21 07/08/21 07/09/21 06:59 18:59 06:59 Intake Total 1140 Balance 1140 Intake: Intake, IV Titration 600 Amount Sodium Chloride 0.9% 1, 600 000 ml @ 50 mls/hr IV . Q20H [facility] Rx#:[id number] Oral 540 Other: # Voids 1 - Labs CBC & Chem 7: 07/07/21 07:05 07/08/21 06:10 Labs: Abnormal Lab Results - Last 24 Hours (Table) 07/08/21 Range/Units 06:10 Sodium 129 L (137-145) mmol/L Potassium 3.2 L (3.5-5.1) mmol/L Chloride 97 L (98-107) mmol/L Creatinine 0.46 L (0.52-1.04) mg/dL Glucose 131 H (74-99) mg/dL
== END 2021-07-08 14:23 | disposition home health service (06) ==
LOC: OR 09:15 → 4SSUR 14:22 → OR 07-07 15:14 → 4SSUR 07-07 15:14
PROVIDERS: ADMIT Orthopaedic Surgery; ATTEND Orthopaedic Surgery
DX: M16.11 Unilateral primary osteoarthritis, right hip (principal); D62 Acute posthemorrhagic anemia; I10 Essential (primary) hypertension; H35.30 Unspecified macular degeneration; E78.00 Pure hypercholesterolemia, unspecified; E78.5 Hyperlipidemia, unspecified; E87.1 Hypo-osmolality and hyponatremia; F17.210 Nicotine dependence, cigarettes, uncomplicated; G47.419 Narcolepsy without cataplexy; H40.9 Unspecified glaucoma; Z79.82 Long term (current) use of aspirin; Z79.899 Other long term (current) drug therapy; Z88.6 Allergy status to analgesic agent; Z90.49 Acquired absence of other specified parts of digestive tract; Z98.41 Cataract extraction status, right eye; Z98.42 Cataract extraction status, left eye; Z96.1 Presence of intraocular lens; Z98.51 Tubal ligation status
CPT/HCPCS: 27130; 97116; 97161; 97530; 97166; 86900; 86901; 80048 ×2; 83735; 85025; 86850; 88300; 73501; G0378 ×2; C1776; J1100; J0690 ×3; J2405; J1650 ×2; J1170

== ENCOUNTER → 2021-09-07 | Outpatient (CLI) | payer MEDICARE ==
--- NOTE | 2021-09-07 15:18 | SFUN ---
SLEEP CENTER FOLLOW UP NOTE PROGRESS NOTE: This 75-year-old female patient with chronic hypersomnia is coming in for a followup. The patient has been maintained on Dexedrine 15 mg for many years. I have maintained the same treatment as long as the patient was seeing adequate alertness and awakeness during the day without having to fall asleep and without having any major side effects. On today's evaluation, she is essentially the same. No significant change in her condition. She is going to bed around 10:30 p.m., getting out of bed around 8:00 in the morning. She takes the first tablet of Dexedrine around 7 a.m. She also drinks around 3-4 cups of coffee during the day. She drinks around 3-4 glasses of wine late in the afternoon. She smokes around one and a half pack of cigarettes a day. No weight gain. She is fully vaccinated for COVID-19. She underwent right hip replacement and that went fine. No headaches. No tachycardia. No angina. No stroke. No reported history of substance abuse. No other complaints otherwise for now. Her medications include: 1. Dexedrine 15 mg p.o. daily. 2. Altace 5 mg p.o. b.i.d. 3. Hydrochlorothiazide 25 mg p.o. daily. 4. Norvasc 10 mg p.o. daily. 5. Zocor 40 mg p.o. daily. 6. Aspirin 81 mg p.o. daily. 7. Xalatan eye drops. 8. Cosopt eye drops. REVIEW OF SYSTEMS: Fourteen-point review of systems was done. Positive findings are all mentioned in the history of present illness. PHYSICAL EXAMINATION: BP is 129/75, pulse 93, respirations 12, temperature 97.6. Saturation 96% on room air. Height is 4 feet 11 inches, weight is 148, BMI 25.1. [place] score is 12. Saturation 95% on room air. GENERAL APPEARANCE: Calm, comfortable. HEAD: Atraumatic, normocephalic. Neck is supple. No JVD. No goiter or neck masses. LUNGS: Clear to auscultation. Heart sounds are regular rate and rhythm. Normal S1, S2. No S3, S4. No murmurs. ABDOMEN: Soft, nontender. No organomegaly. EXTREMITIES: No edema. No cyanosis or clubbing. The patient is walking with the help of a cane. NEUROLOGIC: Awake and alert. There is no focal neurological deficit. IMPRESSION: 1. Chronic idiopathic hypersomnia, maintained on dexedrine 15 mg for more than 30 years, and the patient continues to see adequate level of alertness during the day. No potential abuse. No potential side effects. Level of alertness is adequate. [place] Score is 12. Sleep hygiene measures are essentially acceptable and good. 2. Hypertension. 3. Hyperlipidemia. 4. Smoking. 5. Osteopenia. 6. Glaucoma. 7. Right hip replacement. PLAN: 1. Refill dexedrine 15 mg in the morning. 2. Avoid alcohol drinking at least 3 hours prior to going to bed. 3. Smoking cessation counseling was done. 4. Monitor side effect profile. 5. Refill the medication. 6. See me back in a year's time in followup, earlier if needed. Treatment is successful for now. No need for any further adjustments in the dose of the medication for now. MMODL / IJN: [id number] /
== END | disposition home or self-care (01) ==
LOC: SLEEP 14:09
PROVIDERS: ATTEND Internal Medicine Critical Care Medicine
DX: G47.11 Idiopathic hypersomnia with long sleep time (principal); I10 Essential (primary) hypertension; E78.5 Hyperlipidemia, unspecified; F17.200 Nicotine dependence, unspecified, uncomplicated; M85.80 Other specified disorders of bone density and structure, unspecified site; H40.9 Unspecified glaucoma; Z96.641 Presence of right artificial hip joint

== ENCOUNTER → 2022-09-20 | Outpatient (CLI) | payer MEDICARE ==
--- NOTE | 2022-09-20 14:42 | P.PN ---
Subjective Progress Note Date: 09/20/22 75-year-old female patient who comes and sees me for an annual checkup regarding her chronic hypersomnia. The patient has been treated with Dexedrine 15 mg for more than 30 years. I have been following up this patient for the past few years and I have been refilling her medication as the patient sees significant clinical response with the medication. The patient typically goes to bed at around 10 PM and she wakes up around 6 AM in the morning she takes the medication at around 6:30 AM. Immediately within 30 minutes, she feels much more refreshed and this carries on throughout the day where she maintains her level of alertness. She doesn't have to fall asleep during day-to-day activities. She doesn't take any significant naps. At the same time, the patient does not have any side effects related to medication. No tachycardia. No shortness of breath. No chest pain. No palpitation. No hypertension. No cardiac arrhythmias with atrial fibrillation. No delirium. No potential for many abuse. The patient has been very vigilant and family in terms of her medication intake. The patient has no new masses, with conditions. No scarring. She drinks 2 glasses of wine and she has no history of substance abuse. No weight gain. Medications are essentially unchanged Medication Dexedrine 50 mg by mouth daily, Altace 5 mg by mouth twice a day, hydrochlorothiazide 25 mg by mouth daily, Norvasc 10 mg by mouth daily, Zocor 40 mg by mouth daily, aspirin 81 mg by mouth daily, Xalatan eyedrops and Cosopt eyedrops. The BP is 159/75 with a pulse of 104 and the respiration of 16 with a temperature 97.4 and the patient's body weight is 152 pounds with an Alford score of 12 and oxygen levels of 97% on room air oxygen. The patient appeared well nourished and normally developed. Vital signs as documented. Head exam is unremarkable. No scleral icterus or corneal arcus noted. Neck is without jugular venous distension, thyromegaly, or carotid bruits. Carotid upstrokes are brisk bilaterally. Lungs are clear to auscultation and percussion. Cardiac exam reveals the PMI to be normally sized and situated. Rhythm is regular. First and second heart sounds normal. No murmurs, rubs or gallops. Abdominal exam reveals normal bowel sounds, no masses, no organomegaly and no aortic enlargement. Extremities are nonedematous and both femoral and pedal pulses are normal.Examination of the skin revealed no evidence of significant rashes, suspicious appearing nevi or other concerning lesion s.Neurologically, the patient is awake and alert and the patient does not have any focal neurological deficit. Cranial nerves are essentially intact. Plan Chronic hypersomnia, idiopathic, adequately treated with Dexedrine 15 mg P the patient has maintained the same medication for more than 30 years and she has seen adequate clinical response a compliancy with significant improvement in her level of alertness. No interval side effects or any potential abuse in terms of her ongoing treatment. Chronic hypersomnia, improved Hypertension Hyperlipidemia Smoker Degenerative arthritis Glaucoma Plan Refill medication annually and the patient will be given 90 tablets of labs Dexedrine 15 mg to be taken in the morning and this will be refilled periodically. Continue maintaining adequate sleep hygiene measures. Continue watching for any side effect profile. She has good sleep hygiene measures and she also has no signs of any sleep deprivation. No potential abuse. We'll continue to follow.
== END | disposition home or self-care (01) ==
LOC: SLEEP 14:02
PROVIDERS: ATTEND Internal Medicine Critical Care Medicine
DX: G47.10 Hypersomnia, unspecified (principal); I10 Essential (primary) hypertension; E78.5 Hyperlipidemia, unspecified; F17.200 Nicotine dependence, unspecified, uncomplicated